=== PATIENT | male | born 1955 | race Caucasian/White ===

== ENCOUNTER 2019-07-14 17:01 | Emergency (ER) | payer MEDICARE ==
[~2019-07-14] VITALS: Ht 182.9 cm; Wt 96.8 kg
--- NOTE | 2019-07-14 18:22 | NUR ---
PT AMBULATED TO ROOM FROM LOBBY WITH STEADY GAIT
[2019-07-14] MEDS ORDERED: DIAZEPAM 5 MG/ML, 10ML VIAL IV ONE (19:00)
[2019-07-14] MEDS ORDERED: SODIUM CHLORIDE FLUSH 10ML SYR IVF ONE (19:00)
[2019-07-14] MEDS ORDERED: ONDANSETRON 2MG/ML, 2ML IVPush ONE (19:00)
[2019-07-14 19:24] LABS: MEAN CORPUSCULAR HEMOGLOBIN 30.6 pg (27.5-34.5); MEAN CORPUSCULAR HGB CONC 33.3 g/dL (33.2-36.2); MEAN CORPUSCULAR VOLUME 91.8 fL (81-97); MEAN PLATELET VOLUME 7.9 fL (7.4-10.4); PLATELET COUNT 377 x10^3/uL (130-400); RED BLOOD COUNT 4.59 x10^6/uL (4.38-5.82); RED CELL DISTRIBUTION WIDTH 13.6 % (9.4-14.8)
[2019-07-14 19:32] LABS: ANION GAP 8 mmol/L (5-15); CHLORIDE 111 mmol/L (98-107); CREATININE 1.71 mg/dL (0.7-1.3)
[2019-07-14 19:33] LABS: ALANINE AMINOTRANSFERASE 14 U/L (12-78); ALBUMIN 1.5 g/dL (3.4-5.0)
[2019-07-14 19:35] LABS: ALKALINE PHOSPHATASE 87 U/L (45-117); BILIRUBIN,TOTAL 0.2 mg/dL (0.2-1.0); TOTAL PROTEIN 5.6 g/dL (6.4-8.2)
[2019-07-14] MEDS ORDERED: ONDANSETRON 2MG/ML, 2ML ONE (19:44)
[2019-07-14] MEDS ORDERED: DIAZEPAM 5 MG/ML, 2ML ONE (19:44)
[2019-07-14 19:59] LABS: BASOPHILS # (AUTO) 0.08 x10^3/uL (0-0.1); BASOPHILS % (AUTO) 1 % (0-1); EOSINOPHILS # (AUTO) 0.21 x10^3/uL (0-0.4); EOSINOPHILS % (AUTO) 2 % (1-7); LYMPHOCYTES # (AUTO) 3.14 x10^3/uL (1-3.4); LYMPHOCYTES % (AUTO) 24 % (22-44); MD NO; MONOCYTES # (AUTO) 0.97 x10^3/uL (0.2-0.8); MONOCYTES % (AUTO) 8 % (2-9); NEUTROPHILS # (AUTO) 8.55 x10^3/uL (1.8-6.8); NEUTROPHILS % (AUTO) 66 % (42-75)
[2019-07-14 20:46] LABS: HCT (SEDRATE) 42.2 % (39.2-51.8)
[2019-07-14 22:18] VITALS: BP 129/68
== END 2019-07-14 22:32 | disposition home or self-care (01) ==
LOC: ED 19:30
DX: G62.9 Polyneuropathy, unspecified (principal); K40.90 Unilateral inguinal hernia, without obstruction or gangrene, not specified as recurrent; F17.210 Nicotine dependence, cigarettes, uncomplicated
CPT/HCPCS: 36415; 74176; 80053; 85025; 85651; 96374; 96375; 99284; J2405; J3360; Q0177

== ENCOUNTER 2020-10-21 20:40 | Inpatient (IN) | payer MEDICARE ==
[~2020-10-21] VITALS: Ht 182.9 cm; Wt 101.3 kg
[~2020-10-21 20:40] MED LIST: BUME1TAB21 PO; CARV6.2512 PO; FURO40TA6 PO; GABA800T5 PO; HYDR-3341 PO; LEVO100T5 PO; LEVO125T PO; LISI-167 PO; OMEP-110 PO; SERT-331 PO
[2020-10-21 22:11] LABS: BASOPHILS % (AUTO) 1 % (0-1); EOSINOPHILS % (AUTO) 5 % (1-7); LYMPHOCYTES % (AUTO) 16 % (22-44); MEAN CORPUSCULAR HEMOGLOBIN 24.3 pg (27.5-34.5); MEAN CORPUSCULAR HGB CONC 30.7 g/dL (33.2-36.2); MONOCYTES % (AUTO) 12 % (2-9); NEUTROPHILS % (AUTO) 66 % (42-75); PLATELET COUNT 440 x10^3/uL (130-400); RED BLOOD COUNT 3.22 x10^6/uL (4.38-5.82); RED CELL DISTRIBUTION WIDTH 18.9 % (9.4-14.8)
[2020-10-21 22:13] LABS: MD NO
[2020-10-21 22:17] LABS: ALBUMIN 1.7 g/dL (3.4-5.0); ANION GAP 5 mmol/L (5-15); CALCIUM 7.9 mg/dL (8.5-10.1); CHLORIDE 111 mmol/L (98-107); CREATININE 2.48 mg/dL (0.7-1.3)
--- NOTE | 2020-10-21 22:20 | NUR ---
PT RESTING IN ROOM, ON CR MONITOR, AND MD TO BEDSIDE TO EVAL PT, AND ORDERS RECEIVED.
[2020-10-21 22:22] LABS: TROPONIN I 0.033 ng/mL (0.000-0.045)
--- NOTE | 2020-10-21 22:50 | NUR ---
PTS CREATININE LEVEL IS 2.[address] ON HOLD WHILE HE PAGES THE RADIOLOGIST TO CONFER.
--- NOTE | 2020-10-21 22:54 | NUR ---
UNSUCCESFUL IV ATTEMPTS X3 AND LETTING PT REST AT THIS TIME. WAITING ON CONFERENCE WITH RADIOLOGIST TO SEE IF WE DO THE CT WITH CONTRAST OR WITHOUT. PT RESTING IN BED. AIRWAY INTACT, GOOD AERATION AND OXYGENATION.
--- NOTE | 2020-10-21 23:01 | NUR ---
CT WITH CONTRAST CANCELLED AND CT WITHOUT CONTRAST ORDERED. CT AWARE AND PT TO GO TO CT.
[2020-10-21] MEDS ORDERED: AMPICILLIN/SULBACTAM 3 GM in SODIUM CHLORIDE 0.9% 100 ML IV ONE (23:30)
--- NOTE | 2020-10-22 00:13 | NUR ---
MEDICATION INFUSING VIA IV PUMP, AND PT TOLERATING WELL. IV SITE INTACT, AND FLAT AND NO REDNESS NOTED. PT RESTING IN BED AND ON CR MONITOR. PT USED THE URINAL AND HAD APPROX 600ML OF URINE OUT.
--- NOTE | 2020-10-22 00:21 | NUR ---
PT SLEEPING, NO DISTRESS AT THIS TIME, ANTIBIOTICS INFUSING WITHOUT ISSUE. PT TO BE ADMITTED.
[2020-10-22] MEDS ORDERED: ACETAMINOPHEN 325 MG TABLET PO PRN (01:00)
[2020-10-22] MEDS ORDERED: DOCUSATE 100 MG CAPSULE PO PRN (01:00)
[2020-10-22] MEDS ORDERED: LABETALOL 5MG/ML, 20ML IVPush PRN (01:00)
[2020-10-22] MEDS ORDERED: PROMETHAZINE 25 MG/ML, 1ML IM PRN (01:00)
[2020-10-22] MEDS ORDERED: ONDANSETRON 2MG/ML, 2ML IVPush PRN (01:00)
[2020-10-22] MEDS ORDERED: HYDROcodone/APAP 5/325 TABLET PO PRN (01:00)
[2020-10-22] MEDS ORDERED: FUROSEMIDE 40 MG/4 ML IV SCH (01:30)
[2020-10-22 02:00] VITALS: BP 136/82
[2020-10-22] MEDS: morphine SULFATE 10 MG/ML, 1ML IVPush PRN ×2 (02:11→03:12)
[2020-10-22] MEDS ORDERED: GABA300C PO (02:33)
[2020-10-22 05:13] LABS: CHLORIDE,URINE RANDOM 150 mmol/L; POTASSIUM,URINE RANDOM 18 mmol/L; SODIUM,URINE RANDOM 137 mmol/L
[2020-10-22 05:43] LABS: BASOPHILS % (AUTO) 1 % (0-1); EOSINOPHILS % (AUTO) 3 % (1-7); LYMPHOCYTES % (AUTO) 15 % (22-44); MEAN CORPUSCULAR HEMOGLOBIN 24.1 pg (27.5-34.5); MEAN CORPUSCULAR HGB CONC 30.5 g/dL (33.2-36.2); MEAN PLATELET VOLUME 7.3 fL (7.4-10.4); MONOCYTES % (AUTO) 9 % (2-9); NEUTROPHILS % (AUTO) 72 % (42-75); PLATELET COUNT 467 x10^3/uL (130-400); RED BLOOD COUNT 3.25 x10^6/uL (4.38-5.82); RED CELL DISTRIBUTION WIDTH 18.7 % (9.4-14.8)
[2020-10-22 05:44] LABS: MD NO
[2020-10-22 05:49] LABS: ALBUMIN 1.7 g/dL (3.4-5.0); ANION GAP 7 mmol/L (5-15); CALCIUM 8.2 mg/dL (8.5-10.1); CHLORIDE 110 mmol/L (98-107)
[2020-10-22 05:52] LABS: ALANINE AMINOTRANSFERASE 25 U/L (12-78); ALKALINE PHOSPHATASE 102 U/L (45-117); BILIRUBIN,TOTAL 0.2 mg/dL (0.2-1.0); CREATININE 2.47 mg/dL (0.7-1.3); TOTAL PROTEIN 6.6 g/dL (6.4-8.2)
[2020-10-22] MEDS ORDERED: AMPICILLIN/SULBACTAM 3 GM in SODIUM CHLORIDE 0.9% 100 ML IV SCH (06:30)
[2020-10-22] MEDS ORDERED: LEVOTHYROXINE 125 MCG TABLET PO SCH (08:00)
[2020-10-22] MEDS ORDERED: CARVEDILOL 6.25 MG TABLET PO SCH (08:00)
[2020-10-22 08:34] VITALS: BP 156/77
[2020-10-22] MEDS ORDERED: FAMOTIDINE 20 MG TABLET PO SCH (09:00)
[2020-10-22] MEDS ORDERED: IRON SUCROSE COMPLEX 100MG/5ML IV SCH (09:00)
[2020-10-22] MEDS ORDERED: FUROSEMIDE 40 MG TABLET PO SCH (09:00)
== END 2020-10-22 09:32 | disposition left against medical advice (07) | DRG 682 ==
LOC: ED 21:10 → EDIP 10-22 00:49 → 5SO 10-22 01:43
PROVIDERS: ADMIT Family Medicine; ATTEND Family Medicine
DX: N17.9 Acute kidney failure, unspecified (principal); I50.23 Acute on chronic systolic (congestive) heart failure; L03.213 Periorbital cellulitis; L03.211 Cellulitis of face; I13.0 Hypertensive heart and chronic kidney disease with heart failure and stage 1 through stage 4 chronic kidney disease, or unspecified chronic kidney disease; N18.30 Chronic kidney disease, stage 3 unspecified; F15.90 Other stimulant use, unspecified, uncomplicated; G62.9 Polyneuropathy, unspecified; M48.02 Spinal stenosis, cervical region; M79.89 Other specified soft tissue disorders; D64.9 Anemia, unspecified; E03.9 Hypothyroidism, unspecified; E66.9 Obesity, unspecified; F17.200 Nicotine dependence, unspecified, uncomplicated; Z79.899 Other long term (current) drug therapy; Z79.891 Long term (current) use of opiate analgesic; Z79.01 Long term (current) use of anticoagulants
CPT/HCPCS: 36415; 70486; 71045; 80048; 80053; 82040; 82436; 82570; 82607; 82728; 83540; 83550; 83880; 84133; 84145; 84300; 84484; 85018; 85025; 87040; 93005; 96365; 96366; G0378; J0295; J1940; J2270